=== PATIENT | female | born 1990 | race Caucasian/White ===

== ENCOUNTER 2018-04-03 17:43 | Emergency (ER) | payer OTHER | END 2018-04-03 18:25 | disposition home or self-care (01) | LOC: ERS 17:43 | DX: O99.511 Diseases of the respiratory system complicating pregnancy, first trimester (principal); J20.9 Acute bronchitis, unspecified; Z3A.11 11 weeks gestation of pregnancy | CPT/HCPCS: 99282 ==

== ENCOUNTER 2018-07-24 20:30 | Day surgery (SDC) | payer OTHER ==
[2018-07-24 20:55] VITALS: BMI 37.9
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
[2018-07-24 21:45] LABS: Amnisure Internal Control QC ACCEPTABLE (ACCEPTABLE); Amnisure Test No Membranes Rupture (No Rupture)
== END 2018-07-24 22:00 | disposition home or self-care (01) ==
LOC: L&D/OP 20:30
PROVIDERS: ATTEND Obstetrics & Gynecology
DX: O99.89 Other specified diseases and conditions complicating pregnancy, childbirth and the puerperium (principal); R10.30 Lower abdominal pain, unspecified; M79.605 Pain in left leg; M79.604 Pain in right leg; Z3A.27 27 weeks gestation of pregnancy; W17.89XA Other fall from one level to another, initial encounter; Y92.009 Unspecified place in unspecified non-institutional (private) residence as the place of occurrence of the external cause
CPT/HCPCS: 84112; 99282